=== PATIENT | female | born 1985 | race Caucasian/White ===

== ENCOUNTER 2018-11-27 14:15 | Emergency (ER) | payer OTHER ==
[~2018-11-27] VITALS: Ht 157.5 cm; Wt 61.5 kg
[~2018-11-27 14:15] MED LIST: ACET325T33 PO; NITR-58 PO
[2018-11-27 14:17] VITALS: BP 137/74; PULSE 98; RESP 18; Ht 157.5 cm; Wt 61.5 kg
[2018-11-27] MEDS ORDERED: ACETAMINOPHEN 325 MG TAB PO STA (14:35)
== END 2018-11-27 16:06 | disposition home or self-care (01) ==
LOC: FTE 14:15
DX: O20.9 Hemorrhage in early pregnancy, unspecified (principal); R10.2 Pelvic and perineal pain; Z3A.00 Weeks of gestation of pregnancy not specified
CPT/HCPCS: 36415; 76801; 80048; 81001; 81003; 81025; 84702; 85025; 86900; 86901; 87086

== ENCOUNTER 2018-12-01 08:21 | Emergency (ER) | payer OTHER ==
[~2018-12-01] VITALS: Ht 165.1 cm; Wt 61.8 kg
[2018-12-01 08:24] VITALS: BP 109/62; PULSE 77; RESP 18; Ht 165.1 cm; Wt 61.8 kg
== END 2018-12-01 10:53 | disposition home or self-care (01) ==
LOC: FTE 08:21
DX: N93.9 Abnormal uterine and vaginal bleeding, unspecified (principal)
CPT/HCPCS: 36415; 76801; 76817; 84702